=== PATIENT | male | born 1960 | race Caucasian/White ===

== ENCOUNTER 2019-01-03 13:40 | Emergency (ER) | payer BC, OTHER ==
[2019-01-03] MEDS ORDERED: Thiamine 100 MG in Sodium Chloride 0.9% 100 ML IV ONE (13:51)
[2019-01-03] MEDS ORDERED: Sodium Chloride 0.9% 1,000 ML IV ONE (13:51)
[2019-01-03] MEDS ORDERED: Sodium Chloride 0.9% 10 ML Syringe FLUSH PRN (13:54)
--- NOTE | 2019-01-03 13:54 | EDM.PDOC ---
ED HPI GENERAL MEDICAL PROBLEM - General Stated Complaint: SOB Time Seen by Provider: 01/03/19 13:40 Source of Information: Reports: Patient, Family History Limitations: Reports: Altered Mental Status (ETOH abuse) - History of Present Illness INITIAL COMMENTS - FREE TEXT/NARRATIVE: 58 y.o.w.m came with is Friend to the ED after drinking a 6 pack of beer falling a sleep, then waking up at 11 am with an itching rash all over, SOB and weakness . Pt drinks a case of beer daily, after work. Pt works night shifts. He came by Wheelchair with a friend, Pt was initially not able to give a HPI due to lethargy/ETOH abuse. He air ways were open,GAG reflex present, poor insp effort, unable to sit up for auscultations. Initial Pulse ox was 84 with a RR 20 on 6 liters O2 by NC. BP 119/62 Temp 36.3 Pulse 80. Onset Date: 01/03/19 Onset Time: 11:00 Duration: Hour(s):, Getting Worse Location: Reports: Chest, Generalized Quality: Reports: Burning Severity: Moderate Improves with: Reports: None Worsens with: Reports: None Context: Reports: Other Associated Symptoms: Reports: Loss of Appetite, Malaise, Shortness of Breath, Weakness - Related Data Allergies Allergy/AdvReac Type Severity Reaction Status Date / Time No Known Allergies Allergy Verified 01/03/19 13:51 Home Meds: Home Meds NK [No Known Home Meds] 01/03/19 [History] ED ROS GENERAL - Review of Systems Review Of Systems: See Below Constitutional: Reports: Weakness HEENT: Reports: No Symptoms Respiratory: Reports: Shortness of Breath Cardiovascular: Reports: No Symptoms Endocrine: Reports: No Symptoms GI/Abdominal: Reports: No Symptoms : Reports: No Symptoms Musculoskeletal: Reports: No Symptoms Skin: Reports: Urticaria (with itching) Neurological: Reports: Weakness, Gait Disturbance Psychiatric: Reports: No Symptoms Hematologic/Lymphatic: Reports: No Symptoms Immunologic: Reports: No Symptoms ED EXAM, GENERAL - Physical Exam Exam: See Below Exam Limited By: Intoxication General Appearance: Alert, WD/WN, Lethargic, Obese Eye Exam: Bilateral Eye: Normal Inspection Ears: Normal External Exam Ear Exam: Bilateral Ear: Auricle Normal Nose: Normal Inspection, Normal Mucosa, No Blood Throat/Mouth: Normal Lips, Normal Voice, No Airway Compromise, Other (poor dentition) Head: Atraumatic, Normocephalic Neck: Normal Inspection, Supple, Non-Tender Respiratory/Chest: No Respiratory Distress, No Accessory Muscle Use, Chest Non- Tender, Decreased Breath Sounds (no wheezing) Cardiovascular: Normal Peripheral Pulses, Regular Rate, Rhythm, No Edema Peripheral Pulses: 1+: Brachial (L) GI/Abdominal: Normal Bowel Sounds, Soft, Non-Tender, No Organomegaly, No Abnormal Bruit, No Mass, Pelvis Stable Back Exam: Normal Inspection, Full Range of Motion Extremities: Normal Inspection, Normal Range of Motion, Non-Tender Neurological: Oriented, CN II-XII Intact, Normal Cognition, Slow to Respond, Abnormal Gait (came by Wheel chair) Psychiatric: Normal Affect, Other (tired) Skin Exam: Warm, Dry, Other (urticarial rash with itching) Lymphatic: No Adenopathy EKG INTERPRETATION EKG Date: 01/03/19 Time: 14:00 Rhythm: NSR Rate (Beats/Min): 68 Kellogg: LAD-Left Kellogg Deviation P-Wave: Present QRS: Normal ST-T: Normal QT: Normal Comparison: NA - No Prior EKG Course - Vital Signs Text/Narrative:: 58 y.o.w.m came with is Friend to the ED after drinking a 6 pack of beer falling a sleep, then waking up at 11 am with an itching rash all over, SOB and weakness . Pt drinks a case of beer daily, after work. Pt works night shifts. He came by Wheelchair with a friend, Pt was initially not able to give a HPI due to lethargy/ETOH abuse. He air ways were open,GAG reflex present, poor insp effort, unable to sit up for auscultations. Initial Pulse ox was 84 with a RR 20 on 6 liters O2 by NC. BP 119/62 Temp 36.3 Pulse 80. PE: 58 y.o.w.m, Lethargic/Etoh intoxicated, weak with hypoxemia an an itching rash throughout his entire integument Imaging: CXR: NAD, official report is pending labs: Lactic acid 3.6, ETOH: 0.06 CBC: NL INR/D-Dimer Nl. BMP nl; except Glc 167 Impression: ETOH abuse, urticaria, Dehydration, elevated Lactic acid (due to ETOH abuse, most likely) Tx: NS, Thiamin, Vistaril Reexam: Urticaria symptoms subsided 100%, Pt was alert/awake, able to walk independently Plan: D/C with his friend to home with instructions Last Recorded V/S: Last Vital Signs Temp 36.2 C 01/03/19 13:45 Pulse 72 01/03/19 16:00 Resp 16 01/03/19 16:00 BP 132/73 01/03/19 16:00 Pulse Ox 99 01/03/19 16:00 - Orders/Labs/Meds Orders: Active Orders 24 hr Category Date Time Status Ambulate [RC] ASDIRECTED Care 01/03/19 15:36 Active EKG Documentation Completion [RC] ASDIRECTED Care 01/03/19 13:50 Active Oxygen Therapy Adult [Oxygen Therapy, ED] [RC] Care 01/03/19 13:40 Active ASDIRECTED Peripheral IV Insertion Adult [OM.PC] Routine Oth 01/03/19 13:54 Ordered EKG 12 Lead [EK] Routine Ther 01/03/19 13:48 Ordered Labs: Laboratory Tests 01/03/19 01/03/19 01/03/19 Range/Units 13:55 13:55 13:55 WBC 10.0 (4.5-12.0) X10-3/uL RBC 5.36 (4.30-5.75) x10(6)uL Hgb 16.2 (13.5-17.8) g/dL Hct 47.2 (30.0-51.3) % MCV 88.0 (80-96) fL MCH 30.1 (27.7-33.6) pg MCHC 34.2 (32.2-35.4) g/dL RDW 12.7 (11.5-15.5) % Plt Count 231 (125-369) X10(3)uL MPV 8.8 (7.4-10.4) fL Neut % (Auto) 68.5 (46-82) % Lymph % (Auto) 22.1 (13-37) % [place] % (Auto) 6.7 (4-12) % Eos % (Auto) 2 (1.0-5.0) % Baso % (Auto) 0 (0-2) % Neut # (Auto) 6.9 (1.6-8.3) # Lymph # (Auto) 2.2 (0.6-5.0) # [place] # (Auto) 0.7 (0.0-1.3) # Eos # (Auto) 0.2 (0.0-0.8) # Baso # (Auto) 0.0 (0.0-0.2) # PT 10.9 (8.7-11.1) INR 1.12 (0.89-1.13) D-Dimer, Quantitative 0.46 (0.0-0.59) mg/LFEU Sodium 137 (135-145) mmol/L Potassium 3.6 (3.5-5.3) mmol/L Chloride 100 (100-110) mmol/L Carbon Dioxide 24 (21-32) mmol/L BUN 16 (7-18) mg/dL Creatinine 1.0 (0.70-1.30) mg/dL Est Cr Clr Drug Dosing TNP Estimated GFR (MDRD) > 60 (>60) BUN/Creatinine Ratio 16.0 (9-20) Glucose 167 H (80-116) mg/dL Lactic Acid (0.4-2.2) mmol/L Calcium 8.5 L (8.6-10.2) mg/dL Troponin I (<0.017-0.056) ng/mL Urine Opiates Screen (NEGATIVE) Ur Oxycodone Screen (NEGATIVE) Ur Propoxyphene Screen (NEGATIVE) Ur Barbituates Screen (NEGATIVE) Ur Tricyclics Screen (NEGATIVE) Ur Phencyclidine Scrn (NEGATIVE) Ur Amphetamine Screen (NEGATIVE) Urine MDMA Screen (NEGATIVE) U Benzodiazepines Scrn (NEGATIVE) U Cocaine Metab Screen (NEGATIVE) U Marijuana (THC) Screen (NEGATIVE) Ethyl Alcohol (<0.03) % 01/03/19 01/03/19 01/03/19 Range/Units 13:55 13:55 13:55 WBC (4.5-12.0) X10-3/uL RBC (4.30-5.75) x10(6)uL Hgb (13.5-17.8) g/dL Hct (30.0-51.3) % MCV (80-96) fL MCH (27.7-33.6) pg MCHC (32.2-35.4) g/dL RDW (11.5-15.5) % Plt Count (125-369) X10(3)uL MPV (7.4-10.4) fL Neut % (Auto) (46-82) % Lymph % (Auto) (13-37) % [place] % (Auto) (4-12) % Eos % (Auto) (1.0-5.0) % Baso % (Auto) (0-2) % Neut # (Auto) (1.6-8.3) # Lymph # (Auto) (0.6-5.0) # [place] # (Auto) (0.0-1.3) # Eos # (Auto) (0.0-0.8) # Baso # (Auto) (0.0-0.2) # PT (8.7-11.1) INR (0.89-1.13) D-Dimer, Quantitative (0.0-0.59) mg/LFEU Sodium (135-145) mmol/L Potassium (3.5-5.3) mmol/L Chloride (100-110) mmol/L Carbon Dioxide (21-32) mmol/L BUN (7-18) mg/dL Creatinine (0.70-1.30) mg/dL Est Cr Clr Drug Dosing Estimated GFR (MDRD) (>60) BUN/Creatinine Ratio (9-20) Glucose (80-116) mg/dL Lactic Acid 3.6 H (0.4-2.2) mmol/L Calcium (8.6-10.2) mg/dL Troponin I 0.022 (<0.017-0.056) ng/mL Urine Opiates Screen (NEGATIVE) Ur Oxycodone Screen (NEGATIVE) Ur Propoxyphene Screen (NEGATIVE) Ur Barbituates Screen (NEGATIVE) Ur Tricyclics Screen (NEGATIVE) Ur Phencyclidine Scrn (NEGATIVE) Ur Amphetamine Screen (NEGATIVE) Urine MDMA Screen (NEGATIVE) U Benzodiazepines Scrn (NEGATIVE) U Cocaine Metab Screen (NEGATIVE) U Marijuana (THC) Screen (NEGATIVE) Ethyl Alcohol 0.06 H (<0.03) % 01/03/19 Range/Units 15:25 WBC (4.5-12.0) X10-3/uL RBC (4.30-5.75) x10(6)uL Hgb (13.5-17.8) g/dL Hct (30.0-51.3) % MCV (80-96) fL MCH (27.7-33.6) pg MCHC (32.2-35.4) g/dL RDW (11.5-15.5) % Plt Count (125-369) X10(3)uL MPV (7.4-10.4) fL Neut % (Auto) (46-82) % Lymph % (Auto) (13-37) % [place] % (Auto) (4-12) % Eos % (Auto) (1.0-5.0) % Baso % (Auto) (0-2) % Neut # (Auto) (1.6-8.3) # Lymph # (Auto) (0.6-5.0) # [place] # (Auto) (0.0-1.3) # Eos # (Auto) (0.0-0.8) # Baso # (Auto) (0.0-0.2) # PT (8.7-11.1) INR (0.89-1.13) D-Dimer, Quantitative (0.0-0.59) mg/LFEU Sodium (135-145) mmol/L Potassium (3.5-5.3) mmol/L Chloride (100-110) mmol/L Carbon Dioxide (21-32) mmol/L BUN (7-18) mg/dL Creatinine (0.70-1.30) mg/dL Est Cr Clr Drug Dosing Estimated GFR (MDRD) (>60) BUN/Creatinine Ratio (9-20) Glucose (80-116) mg/dL Lactic Acid (0.4-2.2) mmol/L Calcium (8.6-10.2) mg/dL Troponin I (<0.017-0.056) ng/mL Urine Opiates Screen Negative (NEGATIVE) Ur Oxycodone Screen Negative (NEGATIVE) Ur Propoxyphene Screen Negative (NEGATIVE) Ur Barbituates Screen Negative (NEGATIVE) Ur Tricyclics Screen Negative (NEGATIVE) Ur Phencyclidine Scrn Negative (NEGATIVE) Ur Amphetamine Screen Negative (NEGATIVE) Urine MDMA Screen Negative (NEGATIVE) U Benzodiazepines Scrn Negative (NEGATIVE) U Cocaine Metab Screen Negative (NEGATIVE) U Marijuana (THC) Screen Negative (NEGATIVE) Ethyl Alcohol (<0.03) % Meds: Medications Discontinued Medications Generic Name Dose Route Start Last Admin Trade Name Rohanq PRN Reason Stop Dose Admin Hydroxyzine HCl 50 mg 01/03/19 14:29 01/03/19 14:34 Vistaril IM 01/03/19 14:30 50 mg ONETIME ONE Administration Sodium Chloride 1,000 mls @ 999 mls/hr 01/03/19 13:51 01/03/19 14:10 Normal Saline IV 01/03/19 14:51 999 mls/hr .BOLUS ONE Administration Thiamine HCl 100 mg/ Sodium 101 mls @ 202 mls/hr 01/03/19 13:51 01/03/19 14: 36 Chloride IV 01/03/19 13:52 202 mls/hr ONETIME ONE Administration Sodium Chloride 10 ml 01/03/19 13:54 01/03/19 14:10 Saline Flush FLUSH 10 ml ASDIRECTED PRN Administration Keep Vein Open Departure - Departure Time of Disposition: 15:44 Disposition: Home, Self-Care 01 Condition: Good Clinical Impression: ETOH abuse, Urticaria, Dehydration - Discharge Information Instructions: Shortness of Breath, Adult, [id number], Dehydration, Adult Referrals: Ashish Robert MD [Primary Care Provider] - Forms: ED Department Discharge Additional Instructions: Please increase water intake, NO ETOH, Thiamin 100 mg daily, please f/u, come back if your symptoms get worse acutely - My Orders Last 24 Hours: My Active Orders 01/03/19 13:40 Oxygen Therapy Adult [Oxygen Therapy, ED] [RC] ASDIRECTED 01/03/19 13:48 EKG 12 Lead [EK] Routine 01/03/19 13:50 EKG Documentation Completion [RC] ASDIRECTED 01/03/19 13:54 Peripheral IV Insertion Adult [OM.PC] Routine 01/03/19 15:36 Ambulate [RC] ASDIRECTED - Assessment/Plan Last 24 Hours: My Active Orders 01/03/19 13:40 Oxygen Therapy Adult [Oxygen Therapy, ED] [RC] ASDIRECTED 01/03/19 13:48 EKG 12 Lead [EK] Routine 01/03/19 13:50 EKG Documentation Completion [RC] ASDIRECTED 01/03/19 13:54 Peripheral IV Insertion Adult [OM.PC] Routine 01/03/19 15:36 Ambulate [RC] ASDIRECTED
[2019-01-03] MEDS ORDERED: hydrOXYzine HCl 50 MG/ML SDV IM ONE (14:29)
--- NOTE | 2019-01-03 15:33 | CR ---
INDICATION: Short of breath. CHEST: An AP upright portable view of the chest was obtained 01/03/19 and revealed the heart to be somewhat prominent in size but not grossly enlarged. The aorta is minimally tortuous. Overlying EKG leads are noted. A definite active infiltrate or effusion was not identified. Evidence of exogenous obesity is noted. IMPRESSION: No acute process. MTDD
== END 2019-01-03 16:06 | disposition home or self-care (01) ==
LOC: FB.ED 13:40
DX: L50.9 Urticaria, unspecified (principal); E86.0 Dehydration; F10.10 Alcohol abuse, uncomplicated; Y90.3 Blood alcohol level of 60-79 mg/100 ml
CPT/HCPCS: 36415; 71045; 80048; 80305-QW; 83605; 84484; 85025; 85379; 85610; 93005; 96361; 96365; 96372; 99285-25; G0480; J3410; J3411; J7030

== ENCOUNTER 2019-11-03 15:03 | Emergency (ER) | payer OTHER ==
[2019-11-03] MEDS ORDERED: Albuterol/Ipratropium 3.0-0.5 MG/3 ML Neb Soln NEB ONE (15:22)
--- NOTE | 2019-11-03 15:27 | EDM.PDOC ---
ED HPI GENERAL MEDICAL PROBLEM - General Chief Complaint: Respiratory Problem Stated Complaint: SOB,COUGHED Time Seen by Provider: 11/03/19 15:20 Source of Information: Reports: Patient History Limitations: Reports: No Limitations - History of Present Illness INITIAL COMMENTS - FREE TEXT/NARRATIVE: sent in from [facility] care sob gradual sine one week Got worse on Tuesday : not able to ambulate long distance, used to climb 37 stairs easily at work , now not able to do so as he gets severely sob no leg swelling no smoking cigarettes but smokes marijuana nol fever or chills cough is productive and this am cough up blood , thinks because he took too many OTC medications : sudafed, mucinex etc - Related Data Allergies Allergy/AdvReac Type Severity Reaction Status Date / Time No Known Allergies Allergy Verified 01/03/19 13:51 Home Meds: Home Meds Albuterol Sulfate [Proair Digihaler] 90 mcg IH Q4HR #1 aer.pw.bas 11/03/19 [Rx] Benzonatate [Tessalon Perle] 200 mg PO TID #40 capsule 11/03/19 [Rx] Doxycycline [Vibramycin] 100 mg PO BID #20 cap 11/03/19 [Rx] guaiFENesin [Mucinex] 600 mg PO BID #30 tab.er 11/03/19 [Rx] predniSONE [Prednisone] 20 mg PO DAILY #5 tablet 11/03/19 [Rx] Past Medical History - Past Health History Medical/Surgical History: Denies Medical/Surgical History ED ROS GENERAL - Review of Systems Review Of Systems: See Below Constitutional: Reports: Fatigue, Night Sweats, Decreased Appetite HEENT: Reports: No Symptoms Respiratory: Reports: Shortness of Breath, Wheezing, Cough, Hemoptysis Cardiovascular: Reports: Chest Pain (epigastric pain) Endocrine: Reports: No Symptoms GI/Abdominal: Reports: No Symptoms Musculoskeletal: Reports: No Symptoms Skin: Reports: No Symptoms Neurological: Reports: No Symptoms. Denies: Confusion, Dizziness, Headache Psychiatric: Reports: No Symptoms Hematologic/Lymphatic: Reports: No Symptoms Immunologic: Reports: No Symptoms ED EXAM, GENERAL - Physical Exam Exam: See Below Exam Limited By: No Limitations General Appearance: Alert, WD/WN, No Apparent Distress, Mild Distress (tacypneic ) Eye Exam: Bilateral Eye: EOMI Ears: Normal External Exam, Hearing Grossly Normal Nose: Nasal Drainage, Clear Rhinorrhea Throat/Mouth: Normal Inspection, Normal Oropharynx Head: Atraumatic, Normocephalic Neck: Supple, Non-Tender Respiratory/Chest: Decreased Breath Sounds, Crackles, Rales, Wheezing (from mid lung R > left) GI/Abdominal: Soft, Non-Tender Extremities: Normal Inspection Neurological: Alert, Oriented, CN II-XII Intact, Abnormal Reflexes Skin Exam: Warm Course - Vital Signs Last Recorded V/S: Last Vital Signs Temp 36.6 C 11/03/19 15:15 Pulse 93 11/03/19 17:04 Resp 18 11/03/19 17:04 BP 167/96 H 11/03/19 17:04 Pulse Ox 94 L 11/03/19 17:04 - Orders/Labs/Meds Orders: Active Orders 24 hr Category Date Time Status EKG Documentation Completion [RC] ASDIRECTED Care 11/03/19 15:21 Active RT Aerosol Therapy [RC] ASDIRECTED Care 11/03/19 15:22 Active Chest 2V [CR] Stat Exams 11/03/19 15:21 Taken EKG 12 Lead [EK] Routine Ther 11/03/19 15:21 Ordered Labs: Laboratory Tests 11/03/19 11/03/19 11/03/19 Range/Units 15:40 15:40 15:40 WBC 11.5 (4.5-12.0) X10-3/uL RBC 5.47 (4.30-5.75) x10(6)uL Hgb 16.7 (13.5-17.8) g/dL Hct 49.5 (30.0-51.3) % MCV 90.5 (80-96) fL MCH 30.6 (27.7-33.6) pg MCHC 33.8 (32.2-35.4) g/dL RDW 12.9 (11.5-15.5) % Plt Count 241 (125-369) X10(3)uL MPV 7.9 (7.4-10.4) fL Neut % (Auto) 80.6 (46-82) % Lymph % (Auto) 9.9 L (13-37) % [place] % (Auto) 6.0 (4-12) % Eos % (Auto) 3 (1.0-5.0) % Baso % (Auto) 1 (0-2) % Neut # (Auto) 9.3 H (1.6-8.3) # Lymph # (Auto) 1.1 (0.6-5.0) # [place] # (Auto) 0.7 (0.0-1.3) # Eos # (Auto) 0.3 (0.0-0.8) # Baso # (Auto) 0.1 (0.0-0.2) # D-Dimer, Quantitative 0.20 (0.0-0.59) mg/LFEU Sodium 140 (135-145) mmol/L Potassium 3.9 (3.5-5.3) mmol/L Chloride 101 (100-110) mmol/L Carbon Dioxide 30 (21-32) mmol/L BUN 11 (7-18) mg/dL Creatinine 0.9 (0.70-1.30) mg/dL Est Cr Clr Drug Dosing 92.96 mL/min Estimated GFR (MDRD) > 60 (>60) BUN/Creatinine Ratio 12.2 (9-20) Glucose 110 (80-116) mg/dL Calcium 8.9 (8.6-10.2) mg/dL Total Bilirubin 0.7 (0.1-1.3) mg/dL AST 38 H (5-25) IU/L ALT 46 H (12-36) U/L Alkaline Phosphatase 115 H (56-112) IU/L Troponin I (4.0-60.3) pg/mL NT-Pro-B Natriuret Pep (<=125) pg/mL Total Protein 8.0 (6.0-8.0) g/dL Albumin 3.6 (3.2-4.6) g/dL Globulin 4.4 g/dL Albumin/Globulin Ratio 0.8 11/03/19 11/03/19 Range/Units 15:40 15:40 WBC (4.5-12.0) X10-3/uL RBC (4.30-5.75) x10(6)uL Hgb (13.5-17.8) g/dL Hct (30.0-51.3) % MCV (80-96) fL MCH (27.7-33.6) pg MCHC (32.2-35.4) g/dL RDW (11.5-15.5) % Plt Count (125-369) X10(3)uL MPV (7.4-10.4) fL Neut % (Auto) (46-82) % Lymph % (Auto) (13-37) % [place] % (Auto) (4-12) % Eos % (Auto) (1.0-5.0) % Baso % (Auto) (0-2) % Neut # (Auto) (1.6-8.3) # Lymph # (Auto) (0.6-5.0) # [place] # (Auto) (0.0-1.3) # Eos # (Auto) (0.0-0.8) # Baso # (Auto) (0.0-0.2) # D-Dimer, Quantitative (0.0-0.59) mg/LFEU Sodium (135-145) mmol/L Potassium (3.5-5.3) mmol/L Chloride (100-110) mmol/L Carbon Dioxide (21-32) mmol/L BUN (7-18) mg/dL Creatinine (0.70-1.30) mg/dL Est Cr Clr Drug Dosing mL/min Estimated GFR (MDRD) (>60) BUN/Creatinine Ratio (9-20) Glucose (80-116) mg/dL Calcium (8.6-10.2) mg/dL Total Bilirubin (0.1-1.3) mg/dL AST (5-25) IU/L ALT (12-36) U/L Alkaline Phosphatase (56-112) IU/L Troponin I 14.1 (4.0-60.3) pg/mL NT-Pro-B Natriuret Pep 218 H (<=125) pg/mL Total Protein (6.0-8.0) g/dL Albumin (3.2-4.6) g/dL Globulin g/dL Albumin/Globulin Ratio Meds: Medications Discontinued Medications Generic Name Dose Route Start Last Admin Trade Name Freq PRN Reason Stop Dose Admin Albuterol/Ipratropium 3 ml 11/03/19 15:22 11/03/19 16:00 Duoneb 3.0-0.5 Mg/3 Ml NEB 11/03/19 15:23 3 ml ONETIME ONE Administration Ceftriaxone Sodium 1 gm 11/03/19 16:20 11/03/19 16:55 Rocephin IVPUSH 11/03/19 16:21 1 gm NOW STA Administration Guaifenesin/Phenylephrine HCl 10 ml 11/03/19 16:19 11/03/19 16:55 Robitussin Dm PO 11/03/19 16:20 10 ml NOW STA Administration - Re-Assessments/Exams Free Text/Narrative Re-Assessment/Exam: 11/03/19 17:06 pt responded well to duoneb, cough improved and O2sat improved Departure - Departure Time of Disposition: 17:10 Disposition: Home, Self-Care 01 Condition: Fair Clinical Impression: COPD (chronic obstructive pulmonary disease) with acute bronchitis, Bronchitis , Bronchospasm, acute - Discharge Information *PRESCRIPTION DRUG MONITORING PROGRAM REVIEWED*: Not Applicable *COPY OF PRESCRIPTION DRUG MONITORING REPORT IN PATIENT DREW: Not Applicable Prescriptions: Albuterol Sulfate [Proair Digihaler] 90 mcg IH Q4HR #1 aer.pw.bas Benzonatate [Tessalon Perle] 200 mg PO TID #40 capsule Doxycycline [Vibramycin] 100 mg PO BID #20 cap guaiFENesin [Mucinex] 600 mg PO BID #30 tab.er predniSONE [Prednisone] 20 mg PO DAILY #5 tablet Instructions: Chronic Obstructive Pulmonary Disease, Acute Bronchitis, Adult Referrals: Ashish Robert MD [Primary Care Provider] - Forms: ED Department Discharge Additional Instructions: make appointment to follow up with your PCP as needed Sepsis Event Note - Evaluation Sepsis Screening Result: No Definite Risk - Focused Exam Vital Signs: Vital Signs Temp Pulse Resp BP Pulse Ox 11/03/19 17:04 93 18 167/96 H 94 L 11/03/19 16:17 93 18 150/72 H 93 L 11/03/19 15:15 36.6 C 94 21 H 161/95 H 91 L Date Exam was Performed: 11/03/19 Time Exam was Performed: 17:06 - My Orders Last 24 Hours: My Active Orders 11/03/19 15:21 EKG Documentation Completion [RC] ASDIRECTED Chest 2V [CR] Stat EKG 12 Lead [EK] Routine 11/03/19 15:22 RT Aerosol Therapy [RC] ASDIRECTED - Assessment/Plan Last 24 Hours: My Active Orders 11/03/19 15:21 EKG Documentation Completion [RC] ASDIRECTED Chest 2V [CR] Stat EKG 12 Lead [EK] Routine 11/03/19 15:22 RT Aerosol Therapy [RC] ASDIRECTED
[2019-11-03] MEDS ORDERED: guaiFENesin/Dextromethorphan 100-10 MG/5 ML Soln 5 ML Cup PO STA (16:19)
[2019-11-03] MEDS ORDERED: cefTRIAXone 1 GM Vial IVPUSH STA (16:20)
--- NOTE | 2019-11-05 10:38 | CR ---
INDICATION: Cough, shortness of breath, hemoptysis. CHEST, TWO VIEWS: PA and lateral views of the chest were obtained 11/03/2019 and compared with 01/03/2019 AP view. The heart showed evidence of left ventricular enlargement, mild to moderate degree. Overlying EKG leads are noted. Minimal calcifications suggested in the arch of the aorta. No consolidating pneumonia or effusion was identified. However, there mild to moderate bronchial wall cuffing in the mid to lower lung gray which may be on the basis of fibrosis and/or active peribronchial disease and should be correlated clinically. Bridging hyperostotic changes are noted anterolaterally at upper middle through lower middle thoracic spine. IMPRESSION: 1. Bronchial wall cuffing mid to lower lung gray mild to moderate - may represent active peribronchial disease - correlate clinically. 2. ASHD with LVE. 3. DJD spine. MTDD
== END 2019-11-03 17:13 | disposition home or self-care (01) ==
LOC: FB.ED 15:03
DX: J44.0 Chronic obstructive pulmonary disease with (acute) lower respiratory infection (principal); J20.9 Acute bronchitis, unspecified
CPT/HCPCS: 36415; 71046; 80053; 83880; 84484; 85025; 85379; 87804; 93005; 96374; 99285; A9270; J0696; J7620-GY